=== PATIENT | male | born 1960 | race Caucasian/White ===

== ENCOUNTER 2017-05-09 16:05 | Observation (INO) | payer OTHER ==
--- NOTE | 2017-05-09 16:38 | EDPHY ---
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 The friend at bedside states that she was in the bathroom and heard something fall and she came out of the bathroom and found him lying on the ground. He was conscious. The patient does not remember feeling lightheaded or dizzy. He had no pain in his chest or difficulty breathing. He states "I have no idea why I fell". He does not remember tripping or falling. No history of seizure activity. He complains of a severe headache. He denies neck or back pain. He has pain in both shoulders and the upper aspect of his chest. Denies any other back pain. Denies abdominal pain. Denies vomiting or diarrhea. Denies injury to his lower extremities. The incident happened just prior to arrival. He believes his tetanus shot is current. REVIEW OF SYSTEMS: Constitutional: No fever, no chills. Eyes: No double or blurry vision. ENT: No sore throat. Respiratory: No cough, no shortness of breath. Cardiac: No chest pain. Gastrointestinal: No abdominal pain, vomiting or diarrhea. Genitourinary: No dysuria. Musculoskeletal: No neck or back pain. Skin: No rashes. Neurological: headache. (Carina Wan) Past Medical/Surgical History: Hypertension (Carina Wan) Social History: (Carina Wan) Physical Exam: General Appearance: Alert, no distress. 93/54, heart rate 53, 92% on room air. Patient was kept in a cervical collar. Eyes: Pupils equal and round. Extraocular motions are all intact. ENT: Mouth: Mucous membranes moist. No hemotympanum. No dental injury or malocclusion. Respiratory: No wheezing, rhonchi, or rales, lungs are clear to auscultation. Cardiovascular: Regular rate and rhythm. Gastrointestinal: Abdomen is soft and nontender, no masses, no rebound or guarding, bowel sounds normal. Neurological: Alert and oriented x 2, patient is confused on time. cranial nerves II through XII grossly intact Skin: Scalp laceration noted to the right posterior occipital area of the scalp. No active bleeding noted currently. Warm and dry, no rashes. Musculoskeletal: Nontender to palpate along the cervical, thoracic or lumbar spine. Neck is supple. Extremities: Full range of motion and no peripheral edema. Psychiatric: no agitation. (Carina Wan) Constitutional: Initial Vital Signs Temperature (C) 36.8 C 05/09/17 16:14 Heart Rate 53 L 05/09/17 16:14 Respiratory Rate 16 05/09/17 16:14 Blood Pressure 93/54 L 05/09/17 16:14 O2 Sat (%) 92 05/09/17 16:14 O2 Delivery Mode Nasal Cannula O2 (L/minute) 3 Allergies/Adverse Reactions: No Known Allergies Allergy (Verified 05/09/17 18:12) Home Medications: Medication Instructions Recorded Aspirin EC [Aspirin EC 81 mg (*)] 81 mg PO DAILY 05/09/17 Herbals/Supplements -Info Only 1 ea PO DAILY 05/09/17 Ibuprofen [Motrin (*)] 200 - 400 mg PO Q6H PRN 05/09/17 Metoprolol Succinate Xr [Toprol Xl 100 mg PO DAILY 05/09/17 100 mg (*)] Multivitamins [Multivitamin (*)] 1 each PO DAILY 05/09/17 [place]-3 Fatty Acids [Fish Oil 1000 1,000 mg PO DAILY 05/09/17 mg (*)] Tamsulosin HCl [Flomax 0.4 MG (*)] 0.4 mg PO DAILY 05/09/17 Valsartan/Hydrochlorothiazide 1 each PO DAILY 05/09/17 [Diovan Hct 320-25 mg Tablet] amLODIPine BESYLATE [Norvasc 5 mg 5 mg PO DAILY 05/09/17 (*)] Medical Decision Making - Diagnostics Imaging: Discussed imaging studies w/ materials planner/production planner Radiologist, I viewed and interpreted images myself - Diagnostics EKG Interpretation: EKG: Complete interpretation has been separately recorded in the [facility] archive. Summary impression: Sinus rhythm, rate 57, nonspecific ST T wave changes noted, (Randall Helton) Imaging Results: Imaging Impressions Cervical Spine CT 05/09/17 16:34 Impression: 1. Mild degenerative anterolisthesis of C4, without fracture identified. Results called to Carina Bradford PA-C, at 5:[address] 05/09/17 16:34 Impression: Asymmetric thickening and density of the right tentorium cerebelli suspicious for mild subdural blood at this location. Cosigned Dr. Yan Mary. Results called to Carina Bradford PA-C at the time of the interpretation. Chest X-Ray 05/09/17 16:35 Impression: Negative chest.. Procedures: Laceration repair. Verbal consent was obtained from the patient. The 4 cm laceration on the right posterior scalp was anesthetized using 1% lidocaine with epinephrine. The wound was irrigated with saline, draped and explored to its base with a gloved finger. There were no deep structures involved. The wound was repaired with 9 tami. The wound repair was complex. The procedure was performed by myself. (Carina Wan) ED Course/Re-evaluation: 56-year-old male presents to the emergency department after he had an unwitnessed fall striking the back of his head. CT imaging of the brain reveals small right subdural hematoma. Cervical spine reveals no evidence of fractures. The laceration was repaired, see procedure note. Chest x-ray was within normal limits. Right shoulder x-ray reveals no fractures. I initially spoke with Dr. Michael Leary, on-call trauma surgeon, who admit this patient to the hospital. I spoke with Dr. Monica Morse, on-call neurosurgeon, who will also consult on this patient and recommended obtaining repeat CT scan of the brain in the morning. I spoke with Dr. Val Mckeon, on-call hospitalist, who will consult on this patient who had an unwitnessed fall. The case was discussed with Dr. Helton, secondary supervising physician, who also evaluated the patient. (Carina Wan) Differential Diagnosis: Head injury including but not limited to concussion, skull fracture, intraparenchymal contusion, subarachnoid, subdural and epidural hematoma. (Carina Wan) Critical Care Time: Critical care time exclusive of procedures and exclusive of the PA's time was 35 minutes, performed by myself, Randall Helton MD. The patient presents to the ED with syncope, subdural hematoma and nonspecific EKG changes. The patient required consultation by Trauma surgery, Neurosurgery and Internal Medicine. (Helton,Randall J) Other Provider: Independent physician evaluation I evaluated and participated in the management of the patient. I also evaluated the patient independently. My co-signature indicates that I have reviewed this chart and I agree with the findings and plan of care as documented. My personal H&P findings include: The patient presents the emergency department for evaluation of head trauma after a unwitnessed syncopal event. 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 The patient fell backwards and struck his head. The patient sustained a laceration to the head and presents to the ED with complaints of headache and right shoulder pain. The patient denies prior history of syncope. The patient is not anticoagulated. He does report having some alcohol earlier in the day. Physical exam General Appearance: Alert, no distress Head: Occipital scalp laceration and hematoma Eyes: Pupils equal, round, reactive ENT, Mouth: No hemotympanum, no oral trauma Neck: Nontender, trachea midline Respiratory: No chest wall tender, subcutaneous air, lungs clear bilaterally Cardiovascular: Regular rate and rhythm Abdomen: Abdomen is soft and nontender, pelvis stable Skin: No lacerations, No abrasion Back: No midline T/L/S pain Extremities: Tenderness to palpation over right proximal humerus Neurological: A&Ox3, normal motor function, normal sensory exam ED course: Patient was taken for CT scan of the head which demonstrates a small subdural hematoma. The patient has a GCS of 15 and is neurologically intact. CT of the cervical spine demonstrates no evidence of an acute fracture. The patient's EKG demonstrates nonspecific ST T wave changes. The patient has no complaints of chest pain or shortness of breath. The patient will be admitted to Trauma surgery for observation this evening. Neurosurgery has been consulted. Medicine will be consulted for evaluation of the patient's syncope and nonspecific EKG changes. The patient was seen in consultation by Dr. Leary in the emergency department. He will be admitted to the step-down unit this evening. (Randall Helton) - Data Points Laboratory Results: Laboratory Results 05/09/17 16:40 05/09/17 16:40 05/09/17 05/09/17 05/09/17 16:40 16:40 16:40 WBC 7.41 10^3/uL 10^3/uL (3.80-9.50) RBC 4.30 10^6/uL L 10^6/uL (4.40-6.38) Hgb 13.9 g/dL g/dL (13.7-17.5) Hct 39.0 % L % (40.0-51.0) MCV 90.7 fL fL (81.5-99.8) MCH 32.3 pg pg (27.9-34.1) MCHC 35.6 g/dL g/dL (32.4-36.7) RDW 12.2 % % (11.5-15.2) Plt Count 237 10^3/uL 10^3/uL (150-400) MPV 10.2 fL fL (8.7-11.7) Neut % (Auto) 48.2 % % (39.3-74.2) Lymph % (Auto) 37.2 % % (15.0-45.0) Moody % (Auto) 9.2 % % (4.5-13.0) Eos % (Auto) 4.2 % % (0.6-7.6) Baso % (Auto) 0.9 % % (0.3-1.7) Nucleat RBC Rel Count 0.0 % % (0.0-0.2) Absolute Neuts (auto) 3.57 10^3/uL 10^3/uL (1.70-6.50) Absolute Lymphs (auto) 2.76 10^3/uL 10^3/uL (1.00-3.00) Absolute Monos (auto) 0.68 10^3/uL 10^3/uL (0.30-0.80) Absolute Eos (auto) 0.31 10^3/uL 10^3/uL (0.03-0.40) Absolute Basos (auto) 0.07 10^3/uL 10^3/uL (0.02-0.10) Absolute Nucleated RBC 0.00 10^3/uL 10^3/uL (0-0.01) Immature Gran % 0.3 % % (0.0-1.1) Immature Gran # 0.02 10^3/uL 10^3/uL (0.00-0.10) Sodium 139 mEq/L mEq/L (135-145) Potassium 3.3 mEq/L L mEq/L (3.5-5.2) Chloride 98 mEq/L mEq/L (97-110) Carbon Dioxide 30 mEq/l mEq/l (22-31) Anion Gap 11 mEq/L mEq/L (8-16) BUN 14 mg/dL mg/dL (7-23) Creatinine 0.9 mg/dL mg/dL (0.7-1.3) Estimated GFR > 60 Glucose 113 mg/dL H mg/dL (70-100) Calcium 9.3 mg/dL mg/dL (8.5-10.4) Troponin I < 0.012 ng/mL ng/mL (0.000-0.034) Ethyl Alcohol 68 mg/dL H mg/dL (0-10) Medications Given: Sodium Chloride (Ns) 1,000 mls @ 75 mls/hr IV CONT CARLOS Stop: 11/05/17 21:44 Last Admin: 05/09/17 22:08 Dose: 1,000 mls Oxycodone/Acetaminophen (Percocet 5/325) 1 - 2 tab PO Q3H PRN PRN Reason: Pain, Severe Able to Take PO Stop: 05/19/17 22:02 Last Admin: 05/09/17 22:06 Dose: 2 tab Discontinued Medications Ibuprofen (Motrin) 600 mg PO ONCE ONE Stop: 05/09/17 19:46 Last Admin: 05/09/17 19:59 Dose: Not Given Departure - Departure Disposition: [facility] Inpatient Acute Clinical Impression: Subdural hematoma Syncope Qualifiers: Syncope type: unspecified Qualified Code(s): R55 - Syncope and collapse Scalp hematoma Qualifiers: Encounter type: initial encounter Qualified Code(s): S00.03XA - Contusion of scalp, initial encounter Shoulder strain Qualifiers: Encounter type: initial encounter Laterality: right Qualified Code(s): S46.911A - Strain of unspecified muscle, fascia and tendon at shoulder and upper arm level, right arm, initial encounter Scalp laceration Qualifiers: Encounter type: initial encounter Qualified Code(s): S01.01XA - Laceration without foreign body of scalp, initial encounter Condition: Fair
[2017-05-09 16:54] LABS: PLATELET COUNT 237 10^3/uL (150-400)
--- NOTE | 2017-05-09 17:01 | CPEKG ---
Heart Rate: 57 RR Interval: 1053 P-R Interval: 148 QRSD Interval: 102 QT Interval: 516 QTC Interval: 503 P Farwell: 69 QRS Farwell: 3 T Wave [place]: 252 EKG Severity - ABNORMAL ECG - EKG Impression: SINUS RHYTHM EKG Impression: ABNORMAL T, CONSIDER ISCHEMIA, DIFFUSE LEADS EKG Impression: PROLONGED QT INTERVAL Electronically Signed By: Randall Helton 09-May-2017 20:01:55
[2017-05-09] MEDS ORDERED: IBUPROFEN 600 MG TAB PO ONE (19:45)
--- NOTE | 2017-05-09 21:36 | GHP ---
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 He remembe rs sitting down on the ground. A friend who was with him heard a thud and came out of the bathroom, and found him conscious but laying on the ground. He does not remember any reason for falling. Rober es any real dizziness, headache, or blurry vision. No other injuries or abnormalities, other than a slight complaint of the back was head. Denies any neck pain at this time. He complains primarily of right shoulder pain. He is on multiple blood pressure medicines. PAST MEDICAL HISTORY: Includes hypertension and a knee scope. REVIEW OF SYSTEMS: Negative on a full 10-point Review of Systems, except as related to the HPI. He does not smoke, and denies diabetes or any coronary symptoms. PHYSICAL EXAMINATION: GENERAL: Reveals an alert a 56-year-old male, who is in no acute distress. H e is afebrile. HEENT: Reveals PERRLA, nonicteric. Occlusion normal. No adenopathy or oral lesions. He does have a 1 cm laceration on the back of his scalp which is quite superficial. NECK: His neck collar has been removed. Supple and nontender. CHEST: Clear to auscultation and percussion, with no palpable clavicle or rib fractures. CARDIAC: Reveals a regular rhythm without murmurs. ABDOMEN: Soft and nontender, without masses. PELVIC: There is no pelvic tenderness. BACK: Nontender. EXTREMITIES: Reveal full range of motion with full pulses. NEUROLOGIC: Finds him to be alert and oriented. His cranial nerves are intact and he has equal bila teral motor and sensory function. MUSCULOSKELETAL: Reveals no major abnormalities. He has full range of motion of his right shoulder, although he complains of pain there. PSYCHIATRIC: Exam reveals him to be alert, oriented, and cooperative. ALLERGIES: None. MEDICATIONS: Aspirin, metoprolol, amlodipine, Flomax, and Diovan. IMPRESSION: Closed head trauma with a scalp laceration. IMAGING STUDIES: Cervical CT was negative for any fractures. Head CT reveals an asymmetric thickeni ng, which is being read as a mild subdural. Chest x-ray was negative, as was right shoulder x-ray. A scalp laceration was repaired in the emergency room. FINAL IMPRESSION: Possible subdural, mild, and a 3 cm scalp laceration. PLAN: The patient is admitted for observation on the step-down unit. Neurosurgery has been consulte d, but has not seen the patient yet, and Internal Medicine has been consulted, as well, for evaluatio n of his syncopal episode. /[id number]/MODL
[2017-05-09] MEDS ORDERED: NS 1,000 ML IV SCH (21:45)
[2017-05-09] MEDS ORDERED: oxyCODONE IR 5 MG TAB PO PRN (21:46)
[2017-05-09] MEDS ORDERED: ACETAMINOPHEN 325 MG TAB PO PRN ×2 (21:46→22:30)
[2017-05-09] MEDS ORDERED: ONDANSETRON 4 MG/2 ML VIAL IVP PRN (21:46)
[2017-05-09] MEDS ORDERED: HYDROCODONE/APAP 5/325 TAB PO PRN (21:46)
[2017-05-09] MEDS ORDERED: HYDROmorphONE/DILAUDID 1 MG/ML INJ IVP PRN (21:46)
[2017-05-09] MEDS ORDERED: traMADol 50 MG TAB PO PRN (21:46)
[2017-05-09] MEDS ORDERED: PROTOCOL POTASSIUM 1 DOSE MISC PRN (21:47)
[2017-05-09] MEDS: OXYCODONE/APAP 5/325 TAB PO PRN (22:06)
--- NOTE | 2017-05-09 22:21 | GHP ---
[f rep st] HISTORY AND PHYSICAL DATE OF ADMISSION: 05/09/2017 CHIEF COMPLAINT: Syncope with subsequent head trauma. 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 e model went to the restroom and when the model came back out she found Breezy on the floor unrespons moon. The patient subsequently regained consciousness and was able to talk and walk and so his model brought him in her private vehicle to the emergency room. The patient has absolutely no memory of nancy events. The only thing he remembers is sitting down in his studio and then the next thing he rem embers is being in the emergency room. He lost almost an hour of time, although he is being told by the model that he was walking and talking normally. He denies any chest pain or shortness of breath. Denies any preceding symptoms prior to the event. He had 2-1/2 alcoholic beverages prior to this e vent but he was not drunk he states. He works out regularly without any symptoms. PAST MEDICAL HISTORY: Hypertension. PAST SURGICAL HISTORY: Knee surgery. MEDICATIONS: Please see computer record for full detailed list. ALLERGIES: No known drug allergies. SOCIAL HISTORY: No smoking. He drinks 2 alcoholic beverages per day. He very, very occasionally wi ll smoke marijuana. He is and but does share custody for his daughters and has them on the weekends. 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 REVIEW OF SYSTEMS: Complete review of systems obtained. Review of systems negative on constitutiona l, HEENT, GI, pulmonary, cardiovascular, , hematology, skin, musculoskeletal, endocrine, psych exce pt for positives as in HPI. FAMILY HISTORY: Positive for Parkinson's and Lewy body dementia, stuttering disorder and a CABG. PHYSICAL EXAMINATION: GENERAL: Well-developed, well-nourished male, in no acute distress. VITAL SI GNS: Temperature 37, pulse 65, blood pressure 135/77, 98% on room air. EYE: Normal conjunctivae. Pupils react to light. ENT: Normal ears, nose. Hearing intact. Normal teeth. Oropharynx moist. NECK: Trachea midline. No thyromegaly. CHEST: Normal effort. LUNGS: Clear to auscultation bilat erally. CARDIOVASCULAR: Regular rhythm. No murmur. No lower extremity edema. ABDOMEN: Soft, non tender. No hepatosplenomegaly. SKIN: Warm, dry, intact. No rash. MUSCULOSKELETAL: No cyanosis o r clubbing. Strength 5/5 upper and lower extremities. NEUROLOGIC: Cranial nerves intact. Normal s ensation to light touch. PSYCH: Alert, oriented x3. Normal mood and affect. Normal judgment and i nsight. Normal memory. LABORATORY DATA: White count 7.4, hematocrit 39.0, platelets 337. Sodium 139, potassium 3.3, chlori de 98, bicarb 30, BUN 14, creatinine 0.9, glucose 113. Troponin is negative. Alcohol level 68. EKG viewed by me. My personal interpretation is inferolateral T-wave inversions. Chest x-ray is negati ve. Head CT shows a right cerebellar subdural hematoma. ASSESSMENT AND PLAN: 1. Syncope. The event is unusual in that he had a prolonged period where he appeared coherent, was walking and talking, however he has absolutely no memory of this event. I wonder if it may have been a neurological event such as a seizure. We will ask Neurology to see him in the morning. We will a lso evaluate for cardiac causes including cardiac monitoring. We will check an echocardiogram, a TSH and serial troponins. We will check orthostatics. 2. Subdural hematoma. Neurosurgery will see him. This is unlikely to require intervention. We tara l hold his aspirin. He will likely need a followup head CT prior to discharge. Will defer to Neuros urgery. 3. EKG changes. Need to rule out ischemia. We will follow serial troponins. Could consider stress testing. 4. Scalp laceration. Timing of suture removal will need to be clarified prior to discharge. 5. Hypertension. His hypertension regimen is actually relatively high doses of 4 drugs. We will co ntinue them here but watch his blood pressures closely. Perhaps with his alcohol use, he may be a li ttle dehydrated and may have had a hypotensive event leading to his syncope. His blood pressure will be watched closely. CODE STATUS: Full. ADMISSION STATUS: Will admit to observation, re-evaluate tomorrow regarding ongoing hospitalization. DEEP VENOUS THROMBOSIS PROPHYLAXIS: No pharmacologic prophylaxis due to his head bleed. Will prescr jenelle SCDs. /[id number]/MODL
[2017-05-10] MEDS: OXYCODONE/APAP 5/325 TAB PO PRN (02:19)
[2017-05-10 06:16] LABS: PLATELET COUNT 224 10^3/uL (150-400)
[2017-05-10] MEDS ORDERED: POTASSIUM CL 10 MEQ TAB PO ONE (08:11)
--- NOTE | 2017-05-10 08:28 | NEUSURGPN ---
Assessment/Plan: Assessment: 56 yr old with syncope, small tentorial subdural, neuro intact Plan: -Please see full dictated consultation when available for details -CT report suggests small right tentorial subdural hematoma -Dr Mckeon reviewed CT brain and is not convinced there is an abnormality seen -Neurosurgery will sign off, please contact us for questions/concerns or change in status -Ok to dc from neurosurgery standpoint, no follow up needed -Patient was seen and examined by Dr Mckeon this am at 0700 Subjective: Feeling a little light headed Objective: AxO x3 PERRLA EOMI CN 2-12 grossly intact 5/5 BUE, BLE Sensation intact to light touch BLE Neuro Check Frequency: per routine Urinary Catheter in Place: No - Physician Discussed Patient with Dr.: Mckeon Patient Seen by Dr.: Mckeon Neurosurgery Physical Exam - Vitals, I&O, Labs I and O 05/09/17 05/10/17 05/11/17 05:59 05:59 05:59 Intake Total 974 Balance 974 Weight 83.2 kg Intake: Oral (ml) 500 IV Infused (ml) 474 Ns 1,000 ml @ 75 mls/hr 474 IV CONT CARLOS Rx#: [id number] Other: Number of Voids Toilet 2 1 Vital Signs Temp Pulse Resp BP Pulse Ox 37.0 C 73 19 154/90 H 94 05/10/17 07:33 05/10/17 08:05 05/10/17 07:33 05/10/17 08:05 05/10/17 07:33 Laboratory Results 05/10/17 05:47 05/10/17 05:47 ICD10 Worksheet Patient Problems: Problems Problem Status Onset Scalp hematoma Acute Scalp laceration Acute Shoulder strain Acute Subdural hematoma Acute Syncope Acute
[2017-05-10] MEDS ORDERED: TAMSULOSIN HCL 0.4 MG CAP PO SCH (09:00)
[2017-05-10] MEDS ORDERED: NON-FORMULARY NEW DRUG (Valsartan/Hydrochlorothiazide [Diovan Hct 320-25 Mg Tablet] 1 EACH PO SCH (09:00)
[2017-05-10] MEDS ORDERED: HYDROCHLOROTHIAZIDE 25 MG TAB PO SCH (09:00)
[2017-05-10] MEDS ORDERED: amLODIPine BESYLATE 5 MG TAB PO SCH (09:00)
[2017-05-10] MEDS ORDERED: METOPROLOL SUCCINATE XR 100 MG TAB PO SCH (09:00)
[2017-05-10] MEDS ORDERED: VALSARTAN 160 MG TAB PO SCH (09:00)
--- NOTE | 2017-05-10 10:45 | NEUROPROG ---
Assessment: HOSPITAL NEUROLOGY CONSULT REQUESTING: Val Mckeon MD REASON: syncope HPI: 56 year old left-handed man presented to our ED yesterday with a syncopal episode. 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 He had consumed 2 alcoholic beverages, which is not unusual while he is working. The model went to use the bathroom and while in the bathroom heard a "thud." She exited to find the patient on the ground. He was arousing and seemed to converse appropriately. The model was concerned so drove him to the ED. Patient is amnestic of falling/losing awareness, as well as the events leading up to the ED. He was evaluated with CT head wo, which showed tentorial thickening. Labs were unremarkable (no leukocytosis or metabolic acidosis). He did have a posterior scalp laceration repaired. He did not have any tongue biting or incontinence. He was noted to be hypotensive and bradycardic on initial evaluation, which has resolved. He has felt back to baseline since arriving to the ED. He has no complaints today. No epilepsy risk factors, including TBI, intracranial instrumentation, HEAD MVA REACTOR OPERATOR infection, collagen vascular disease. No prior history of seizure. No developmental issues. No evidence of adventitial movements or focal deficits surrounding the events. ROS: As per the HPI, otherwise a complete 12 point ROS was performed and is negative ALLERGIES AND MEDS: As recorded in the EMR - reviewed and reconciled PFSH: As per the intake H&P by Dr. Mckeon from yesterday EXAM: VS reviewed in EMR GEN: WDWN laying in NAD HEENT: NCAT, sclera anicteric, conjunctiva not injected, MMM, oropharynx clear, no scalp tenderness NECK: supple, nontender, no meningismus CV: RRR s1 s2 wo m/r/c/g. Carotid pulses 2+ wo bruit NEURO: MS: awake, alert, oriented to all spheres. Speech nondysarthric. No language disturbance. Follows commands. Attends to both sides. Recent/remote memory grossly intact. Mood euthymic. Good fund of knowledge. CN: pupils 3mm round and reactive. Fundi with sharp discs. VFF. Primary gaze centered. Full ocular motility. Facial sensation preserved. Face symmetric. Hearing grossly intact to finger rub. Palatoglossal movements intact. Shoulder shrug and head turn strong. MOTOR: normal bulk/tone. No adventitial movements. Full power throughout. SENSORY: intact to all modalities throughout. No extinction. COORD: no ataxia FN/HS. Sav preserved. REFLEX: plantars down. No clonus. DTRS 2/4. GAIT: deferred to PT safety eval DATA REVIEW: Labs reviewed in EMR PERSONALLY INTERPRETED RESULTS AND DATA: CT head wo - normal parenchyma, tentorial thickening - I think this is artifact and not blood IMPRESSION AND RECOMMENDATIONS: // SYNCOPE Patient with syncopal episode and a short period of amnesia afterwards. I suspect his amnesia was from a combination of head impact, alcohol and global loss of perfusion with syncope. I don't think this was a primary neurologic event. He was bradycardic and hypotensive on arrival, which would be more concerning for a primary cardiovascular event. Recommend cardiovascular screening and optimization per primary team. Will sign off. Recall PRN. Objective: Vital Signs Temp Pulse Resp BP Pulse Ox 37.0 C 73 19 154/90 H 94 05/10/17 07:33 05/10/17 08:05 05/10/17 07:33 05/10/17 08:05 05/10/17 07:33 Laboratory Results 05/10/17 05:47 05/10/17 05:47 05/09/17 05/10/17 05/11/17 05:59 05:59 05:59 Intake Total 974 Balance 974 Allergies/Adverse Reactions: No Known Allergies Allergy (Verified 05/09/17 18:12)
[2017-05-10 12:00] VITALS: TEMP 99.5; O2SAT 97
[2017-05-10 12:57] VITALS: BP 141/83; PULSE 77; RESP 18
--- NOTE | 2017-05-10 13:05 | ECHO ---
[email or web address] [address] [address] Main: [phone] Fax: Transthoracic Echocardiogram Name: IRWIN SONI MR#: [id number] Study Date: 05/10/2017 Study Time: 11:18 AM Date of : 1960 Age: 56 year(s) Height: 200.7 cm (79 in.) Weight: 83.01 kg (183 lb.) BSA: 2.19 m2 Gender: Male Examination: Echo Indication: Cardiac: syncope Image Quality: Technically Difficult Contrast: Requested by: Val Mckeon BP: 150 mmHg/85 mmHg Heart Rate: Rhythm: Indication: Cardiac: syncope Procedure Staff Jack Frame Tender: Eveline Longo RDCS Reading Physician: Juan Jose Cee MD Requesting Provider: Conclusions: Normal study Measurements: Chambers Valvular Assessment AV/MV Valvular Assessment TV/PV Normal Normal Normal Name Value Range Name Value Range Name Value Range Ao Calista (MM): 4.0 cm (2.2 cm-3.7 AV meanP mmHg ( - ) TR Vmax: 2.47 mm/s ( - ) cm) MV E Vmax: 0.68 m/s ( - ) TR PGmax: 24 mmHg ( - ) IVSd (2D): 0.9 cm (0.6 cm-1.1 MV A Vmax: 0.52 m/s ( - ) syst. PAP: 29 mmHg ( - ) cm) MV E/A: 1.31 ( - ) LVDd (2D): 5.2 cm (4.2 cm-5.9 cm) LVDs (2D): 2.7 cm (2.1 cm-4 cm) LVPWd (2D): 0.8 cm (0.6 cm-1 cm) LVEF (MOD4): 76 % (>=55 %) EF Range: 70-75 % Continued Measurements: Chambers Valvular Assessment AV/MV Valvular Assessment TV/PV Name Value Name Value Name Value LADs: 4.4 cm MV E/E' Septal: 8.00 CVP (est.): 5 mmHg LADs Lon.4 cm MV E/E' Lateral: 6.80 LA Area: 21.5 cm2 Findings: Left Ventricle: Patient: IRWIN SONI Study Date: 05/10/2017 Page 1 of 2 11:18 AM Normal size left ventricle. No LV hypertrophy. Normal global systolic LV function. The ejection fraction is estimated to be 70-75 %. No regional wall motion abnormality. Right Ventricle: Normal size right ventricle. Left Atrium: The left atrium is normal in size. Right Atrium: The right atrium is normal in size. Mitral Valve: The mitral valve is normal in appearance and function. Trivial mitral valve regurgitation. Aortic Valve: The aortic valve is normal in appearance and function. Tricuspid Valve: The tricuspid valve is normal in appearance and function. Mild tricuspid regurgitation is present. The pulmonary artery pressure is normal. Pulmonic Valve: The pulmonic valve is normal in appearance and function. Aorta: The aorta is normal. Pericardium: No pericardial effusion. (No Signature Object) Patient: IRWIN SONI Study Date: 05/10/2017 Page 2 of 2 11:18 AM [id number]
--- NOTE | 2017-05-10 14:04 | GCON ---
[f rep st] CONSULTATION INPATIENT CONSULTATION DATE OF CONSULTATION: 05/10/2017 CHIEF COMPLAINT: Syncope with subsequent head trauma. 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 He did regain consciousness and was able to walk and talk, and so she had brought him to the emergency room by private vehicle for evaluation. The patient has no memory to the events prior to his fall. He does not know where or on what, if he hit his head. Patient states he had approximately 2 glasses of alcohol prior to this event. This patient underwent a CT of the brain, which was found to have a small right tentorium subdural hematoma, and we were consulted. REVIEW OF SYSTEMS: A 10-point review of systems was reviewed and negative aside from what was mentioned in the HPI. PAST MEDICAL HISTORY: Hypertension. PAST SURGICAL HISTORY: Knee surgery. MEDICATIONS: Aspirin, metoprolol, multivitamin, Flomax, Diovan, Norvasc. ALLERGIES: Patient has no known drug allergies. SOCIAL HISTORY: The patient drinks approximately 2 alcohol beverages per day. He occasionally will smoke marijuana. He does not use nicotine products. 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 FAMILY HISTORY: Positive for Parkinson, and Lewy body dementia, and heart disease. LABORATORY RESULTS: White blood cell count 8.81, hemoglobin 14.1, hematocrit 39.4, platelets 224. Sodium 136, potassium 3.4, BUN 16, creatinine 0.8, glucose 108. DIAGNOSTIC IMAGING: CT of the head performed without contrast on May 09, 2017, demonstrates asymmetric thickening and density of the right tentorium, suspicious for mild subdural blood at this location. PHYSICAL EXAM: HEENT: Head is normocephalic and atraumatic. Pupils are equal , round, and reactive to light. EOMI is intact. Full visual tee by confrontation. RESPIRATORY AND CARDIAC: Deferred. ABDOMEN: Deferred. GENITOURINARY AND RECTAL: Deferred. NEUROLOGIC: The patient is awake and alert, oriented to name, place, location, date, time, and situation. Memory is intact to immediate, past and current events. Speech: No aphasia or dysphonia. Cranial nerves 2-12 are grossly intact. The patient has 5/5 strength in all muscle groups in the bilateral upper and lower extremities to include deltoids, biceps, triceps, brachioradialis, wrist flexion, extensors, preschool principal, intrinsic fingers, iliopsoas, quadriceps, hamstrings, plantar flexion, dorsiflexion, EHL testing. Sensation is grossly intact to light touch through all dermatomal distributions in bilateral lower extremities. Reflexes: Biceps , triceps, brachioradialis, knee jerk and ankle jerk are 2+/4. Toes are downgoing bilaterally. Babinski is negative. Orona's is negative. ASSESSMENT AND PLAN: The patient is a 56-year-old gentleman who presented to the emergency room yesterday following a syncopal episode, where he subsequently hit his head. Head CT performed without contrast suggests a small right tentorium subdural hematoma. Dr. Mckeon reviewed the CT and does not appreciate any abnormal findings or subdural hematoma. The patient is completely neurologically intact and remains asymptomatic from a neurosurgical standpoint. Neurosurgery will sign off as there are no concerning findings. The patient may discharge from our standpoint. Please call Neurosurgery with any change in symptoms or with any questions or concerns. The patient was seen and examined at the patient's bedside, in the intensive care unit on May 10, 2017 at 7 a.m. by myself and Dr. Mckeon. /[id number]/MODL MTDD
--- NOTE | 2017-05-10 14:20 | ASMTLACE ---
LACE Length of stay for Answers: 1 day current admission Acuity / Level of Answers: No Care: Did the patient have an inpatient admission? Comorbidities - select Answers: Other Notes: syncope, head injury all that apply # of Emergency department Answers: 1-2 visits in the last 6 months Score: 3 Date Signed: 05/10/2017 02:19 PM Electronically Signed By:Alize Sarkar LCSW
--- NOTE | 2017-05-10 14:26 | ASMTCMCOM ---
CM Note CM Note Notes: 56 yr old male admitted after a syncopal episode where he fell and had a head injury. Patient has been cleared by neurosurg, neurology and OT. Patient lives alone. OT recommends that patient have a friend stay with himthe day/night of discharge. No Other needs. Date Signed: 05/10/2017 02:25 PM Electronically Signed By:Alize Sarkra LCSW
--- NOTE | 2017-05-10 14:38 | CPEKG ---
Heart Rate: 65 RR Interval: 923 P-R Interval: 144 QRSD Interval: 94 QT Interval: 460 QTC Interval: 479 P Hustler: 33 QRS Hustler: -1 T Wave Hustler: 244 EKG Severity - ABNORMAL ECG - EKG Impression: SINUS RHYTHM EKG Impression: ABNORMAL T, CONSIDER ISCHEMIA, ANT-LAT LEADS EKG Impression: BORDERLINE PROLONGED QT INTERVAL Electronically Signed By: Horace Ramirez 10-May-2017 14:51:26
--- NOTE | 2017-05-10 19:22 | TRAUMAPN ---
Assessment/Plan: 56 yo s/p fall, with questions of intracranial hematoma. Neurosurgery has evaluated and not felt to be a finding. I performed a tertiary survey and did not find additional injuries I suspect his right arm tightness will resolve with time Trauma will sign off Discussed with Dr. Browning S: Some right arm tightness Objective: Vital Signs Temp Pulse Resp BP Pulse Ox 37.5 C 77 18 141/83 H 97 05/10/17 11:57 05/10/17 12:00 05/10/17 12:00 05/10/17 12:00 05/10/17 12:00 Laboratory Results 05/10/17 05:47 05/10/17 05:47 05/09/17 05/10/17 05/11/17 05:59 05:59 05:59 Intake Total 974 Balance 974 Physical Exam - Physical Exam General Appearance: WD/WN, alert, no apparent distress EENT: PERRL/EOMI, normal ENT inspection, No scleral icterus (R), No scleral icterus (L), No hearing deficit Neck: non-tender, full range of motion Respiratory: chest non-tender, lungs clear, normal breath sounds Cardiac/Chest: regular rate, rhythm, No edema Abdomen: normal bowel sounds, non-tender, soft Back: Normal inspection Skin: normal color, warm/dry Extremities: normal range of motion, non-tender, normal inspection Neuro/Psych: no motor/sensory deficits, normal mood/affect
--- NOTE | 2017-05-11 15:40 | GDS ---
[f rep st] DISCHARGE SUMMARY DISCHARGE DIAGNOSES: Include: 1. Acute syncope. 2. Head trauma, status post scalp laceration and stapling. 3. Hypertension. 4. Subdural hematoma. 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 Patient had a syncopal epi sode, hitting his head with loss of consciousness. Patient was brought to the emergency department f or evaluation. For details of patient's initial presentation, please see the history and physical da estephania 05/09/2017. CONSULTATIVE SERVICES: Include: 1. Trauma Surgery. 2. Neurosurgery. 3. Case Management. 4. [facility]. PROCEDURES: 05/09/2017, patient had a CT of the head which showed asymmetric thickening of the right tentorium, suspicious for subdural. On 05/09/2017, patient had a transthoracic echocardiogram that shows normal LV size, function. No segmental wall motion abnormalities. HOSPITAL COURSE: By issue: 1. Syncope. The etiology of this patient's syncopal episode is unclear. It is known that the patie nt was under the influence of alcohol. He denies other drugs. The patient lost consciousness, hitti ng his head. Patient was seen by both Trauma as well as Neurosurgery, and cleared from a trauma zuleyma dpoint. Patient was monitored overnight on telemetry. Serial troponins remained negative. No cardi ac dysrhythmias were appreciated, and transthoracic echocardiogram was normal. Patient was anxious t o leave the hospital, and opted for an outpatient Holter monitor and evaluation by Cardiology as an o utpatient for potential stress testing. Patient will have a Holter monitor sent to his home, and has an already scheduled followup appointment at [facility] on 06/27/2017. Patient has been instructe d to avoid alcohol intake until Holter monitoring is complete, and he has followup with both his [facility] as well as [facility]. 2. Hypertension. Patient's blood pressures remained well controlled on his outpatient 4-drug regime n. We did not make any changes to this, and I have recommended that he follow in the outpatient sett ing with his primary care next week. 3. Head laceration, status post stapling. He has been instructed to return to the emergency departm ent in 5-7 days for removal of his tami. MEDICATIONS: At the time of disposition: Please reference the med rec. Of note, no new medications were provided. FOLLOWUP APPOINTMENTS: Include: 1. The emergency department for staple removal. 2. Primary care for blood pressure check. 3. [facility] for Holter monitoring and followup. 4. Neurosurgery for outpatient followup if needed for any ongoing issues. PENDING STUDIES: At the time of this dictation are none. Spent greater than 30 minutes in the planning and coordination of this discharge. /[id number]/MODL
== END 2017-05-10 16:21 | disposition home or self-care (01) ==
LOC: F2N 20:28
PROVIDERS: ADMIT Surgery; ATTEND Hospitalist
PROC: 0HQ0XZZ Repair Scalp Skin, External Approach (ICD-10-PCS; principal; 2017-05-09)
DX: S06.5X1A Traumatic subdural hemorrhage with loss of consciousness of 30 minutes or less, initial encounter (principal); W18.39XA Other fall on same level, initial encounter; Y92.513 Shop (commercial) as the place of occurrence of the external cause; Y99.0 Civilian activity done for income or pay; R55 Syncope and collapse; R40.2413 Glasgow coma scale score 13-15, at hospital admission; I10 Essential (primary) hypertension
CPT/HCPCS: 12002; 70450; 71046; 72125; 73030; 93005; 93306; 97161; 97165; G0378; G0480